=== PATIENT | male | born 1995 | race Two or more races ===

== ENCOUNTER → 2016-09-24 | Outpatient (CLI) | payer OTHER ==
--- NOTE | 2016-09-24 13:42 | CT ---
CT of the Left Ankle, Without Contrast HISTORY: Evaluate osteochondral lesion, medial talar dome. TECHNIQUE: Volumetric axial CT images of the left ankle are obtained, and are reformatted in the sagi ttal and coronal planes. Dose reduction techniques are utilized. Comparison examination: MRI of the left ankle performed August 30, 2016, [facility] FINDINGS: An osteochondral lesion involves the medial talar dome. The lesion measures 2.0 cm AP dimen sions and 1.2 cm medial lateral dimensions. There is a small fragment of bone directly adjacent to th e osteochondral defect anteriorly. When compared to the prior MRI examination, there appears to be fi brocartilage filling the osseous defect posteriorly, likely secondary to prior microfracture repair. No significant osseous fragment overlies the osteochondral defect. Previous MRI also demonstrates dif fuse chondral thinning throughout the medial aspect of the tibiotalar joint compatible with diffuse c hondromalacia. No intraarticular loose body identified. No additional areas of bone abnormality noted. IMPRESSION: 2.0 x 1.2 cm osteochondral defect in medial talar dome, without significant bone fragmen t overlying the defect. The posterior aspect of the defect is filled by overlying fibrocartilage as d ocumented on previous MRI examination. Previous MR also demonstrates diffuse chondral thinning throug hout the medial aspect of the ankle joint.
== END ==
LOC: FIMAGING 12:06
PROVIDERS: ATTEND Orthopaedic Surgery
DX: M95.8 Other specified acquired deformities of musculoskeletal system (principal); M25.572 Pain in left ankle and joints of left foot